=== PATIENT | male | born 1930 | race Caucasian/White ===

== ENCOUNTER 2017-10-30 11:16 | Outpatient (CLI) | payer MEDICARE ==
--- NOTE | 2017-10-30 14:56 | RAD ---
RIGHT WRIST FOUR VIEWS: 10/30/2017 FINDINGS: No acute fracture is seen. There is some mild narrowing between the scaphoid and the trapezium and b etween the trapezium and the first metacarpal, indicating some mild degenerative change. There is so me calcification in the soft tissues lateral to the trapezium, most likely from old trauma. The scap holunate space is slightly wide but still within normal limits at 2.3 mm. There may have been old tr auma at the base of the fourth metacarpal. IMPRESSION: Degenerative changes laterally. Possible old trauma, but no acute bony finding. POS: HOME
== END 2017-10-30 11:17 | disposition home or self-care (01) ==
LOC: BURRAD 11:16
PROVIDERS: ATTEND Family Medicine
DX: S69.91XA Unspecified injury of right wrist, hand and finger(s), initial encounter (principal); M19.031 Primary osteoarthritis, right wrist

== ENCOUNTER 2017-11-07 02:48 | Emergency (ER) | payer MEDICARE ==
[2017-11-07] MEDS ORDERED: cefTRIAXone\\ROCEPHIN 1 GM VIAL ONE (03:25)
[2017-11-07] MEDS ORDERED: methylPREDNISolone Sod Succ/PF 125 MG/2 ML VIAL ONE (03:25)
[2017-11-07] MEDS ORDERED: Sodium Chloride For Inhalation 0.9% 3 ML NEB ONE (03:27)
== END 2017-11-07 03:35 | disposition home or self-care (01) ==
LOC: BURERS 02:48
DX: J01.90 Acute sinusitis, unspecified (principal); J02.9 Acute pharyngitis, unspecified; I10 Essential (primary) hypertension; K21.9 Gastro-esophageal reflux disease without esophagitis; F32.9 Major depressive disorder, single episode, unspecified; F41.9 Anxiety disorder, unspecified; Z79.899 Other long term (current) drug therapy
CPT/HCPCS: 96372; J0696; J2930

== ENCOUNTER 2018-01-16 09:50 | Emergency (ER) | payer MEDICARE ==
[2018-01-16] MEDS ORDERED: Ondansetron HCl/PF 4 MG/2 ML Vial ONE (10:08)
[2018-01-16] MEDS ORDERED: Mag-Al Plus 1200 MG/1200 MG/120 MG/30 ML UDCUP ONE (10:08)
[2018-01-16] MEDS ORDERED: Lidocaine Viscous Sol 2% 15 ml UD Cup ONE (10:08)
[2018-01-16 10:18] LABS: #Basophils 0.1 thou/uL (0.0-0.2); #Eosinphils 0.1 thou/uL (0.0-0.7); #Lymphocytes 1.5 thou/uL (1.20-3.40); %Eosinophils 1.1 % (0.0-10.0); %Lymphocytes 15.1 % (21.0-51.0); %Monocytes 10.2 % (0.0-10.0); %Neutrophils 72.5 % (42.0-75.0); Hemoglobin 16.2 g/dL (14.0-18.0); Mean Corpuscular HGB CONC 35.9 g/dL (32.0-36.0); Mean Corpuscular Hemoglobin 30.1 pg (27.0-31.0); Mean Corpuscular Volume 83.8 fl (80.0-94.0); Platelet Count 195 thou/uL (130-400); RBC Distribution Width 11.3 % (11.5-14.5); Red Blood Cell (RBC) Count 5.38 mill/uL (4.70-6.10); White Blood Cell (WBC) Count 9.7 thou/uL (4.8-10.8)
[2018-01-16 10:34] LABS: ALT (SGPT) 24 U/L (8-55); AST (SGOT) 16 U/L (5-34); Albumin 3.8 g/dL (3.4-4.8); Alkaline Phosphatase 73 U/L (40-150); Anion Gap 14 mmol/L (10-20); BUN (Urea Nitrogen) 14 mg/dL (8.4-25.7); Calc. Creatinine Clearance 0 mL/min (70-130); Calcium 9.2 mg/dL (7.8-10.44); Carbon Dioxide 26 mmol/L (23-31); Chloride 91 mmol/L (98-107); Estimated GFR-MDRD 86; Glucose 125 mg/dL (83-110); Lipase 35 U/L (8-78); Potassium 3.9 mmol/L (3.5-5.1); Protein, Total 6.8 g/dL (5.8-8.1); Sodium 127 mmol/L (136-145)
[2018-01-16 10:35] LABS: CKMB 0.8 ng/mL (0-6.6); Troponin I Less than 0.010 ng/mL (< 0.028)
--- NOTE | 2018-01-16 17:37 | RAD ---
PORTABLE CHEST: 01/16/18 An AP portable film at 0955 is compared with a 09/16/15 study. The heart is normal in size. There are no acute infiltrates or effusions. There is no vascular conges tion or edema. Minimal streaking near the cardiac apex is probably scarring and seems no different th an before. IMPRESSION: No acute thoracic finding. POS: HOME
== END 2018-01-16 10:58 | disposition home or self-care (01) ==
LOC: BURERS 09:50
DX: R07.89 Other chest pain (principal); R00.2 Palpitations; E87.8 Other disorders of electrolyte and fluid balance, not elsewhere classified; E87.1 Hypo-osmolality and hyponatremia
CPT/HCPCS: 36415; 71045; 80053; 82553; 83690; 84484; 85025; 93005; 96374; J2405

== ENCOUNTER 2018-09-04 10:22 | Emergency (ER) | payer MEDICARE ==
[2018-09-04 10:42] LABS: #Eosinphils 0.3 thou/uL (0.0-0.7); #Lymphocytes 2.3 thou/uL (1.20-3.40); #Neutrophils 7.4 thou/uL (1.40-6.50); %Basophils 0.4 % (0.0-1.0); %Eosinophils 2.6 % (0.0-10.0); %Lymphocytes 20.4 % (21.0-51.0); %Monocytes 9.3 % (0.0-10.0); %Neutrophils 67.3 % (42.0-75.0); Hemoglobin 16.2 g/dL (14.0-18.0); Mean Corpuscular HGB CONC 34.5 g/dL (32.0-36.0); Mean Corpuscular Hemoglobin 30.9 pg (27.0-31.0); Mean Corpuscular Volume 89.5 fL (78.0-98.0); Mean Platelet Volume 5.6 fL (7.4-10.4); Platelet Count 237 thou/uL (130-400); RBC Distribution Width 11.8 % (11.5-14.5); Red Blood Cell (RBC) Count 5.25 mill/uL (4.70-6.10)
[2018-09-04] MEDS ORDERED: Aspirin Chewable 81 MG TAB ONE (10:51)
[2018-09-04 11:00] LABS: ALT (SGPT) 19 U/L (8-55); AST (SGOT) 17 U/L (5-34); Albumin 3.9 g/dL (3.4-4.8); Alkaline Phosphatase 78 U/L (40-150); Anion Gap 13 mmol/L (10-20); BUN (Urea Nitrogen) 12 mg/dL (8.4-25.7); Bilirubin, Total 0.5 mg/dL (0.2-1.2); Calc. Creatinine Clearance 0 mL/min (70-130); Calcium 9.4 mg/dL (7.8-10.44); Carbon Dioxide 27 mmol/L (23-31); Chloride 99 mmol/L (98-107); Estimated GFR-MDRD 72; Globulin 2.9 g/dL (2.4-3.5); Glucose 123 mg/dL (83-110); Potassium 3.8 mmol/L (3.5-5.1); Protein, Total 6.8 g/dL (5.8-8.1); Sodium 135 mmol/L (136-145)
[2018-09-04 13:44] LABS: Bilirubin Negative (Negative); Blood, Urine Negative (Negative); Clarity Clear (Clear); Glucose, Urine (Dipstick) Negative (Negative); Leukocyte Negative (Negative); Nitrite Negative (Negative); Protein, Urine (Dipstick) Negative (Neg-Trace); Specific Gravity, Urine 1.015 (1.005-1.030); Urobilinogen 0.2 mg/dL (0.2-1.0)
--- NOTE | 2018-09-04 18:59 | RAD ---
PORTABLE CHEST: 09/04/18 An AP portable film at 1023 is compared with 02/09/18 study. The heart is normal in size and the lungs are clear. No infiltrate or effusion was appreciated. It is difficult to see the left base well. There is no vascular congestion or edema. IMPRESSION: No acute thoracic finding. POS: HOME
== END 2018-09-04 14:14 | disposition home or self-care (01) ==
LOC: BURERS 10:22
DX: R07.89 Other chest pain (principal); I10 Essential (primary) hypertension; K21.9 Gastro-esophageal reflux disease without esophagitis; Z79.899 Other long term (current) drug therapy
CPT/HCPCS: 36415; 71045; 80053; 81003; 83880; 84484; 85025; 93005